=== PATIENT | female | born 1985 | race Caucasian/White ===

== ENCOUNTER 2016-07-28 03:23 | Emergency (ER) | payer OTHER ==
[~2016-07-28 03:23] MED LIST: ACTIGALL300 MG PO; METHADONE HCL10 M1 PO; PRENATAL TABLE1 EAC2 PO; ZOFRAN ODT4 M1 PO
--- NOTE | 2016-07-28 03:43 | ED CARDIAC/CP/PALPITATIONS ---
History of Present Illness General Chief Complaint: Chest Pain Stated Complaint: CHEST PAIN, ABD TIGHTNESS, 29 WEEKS PREG Source: patient, family, old records Exam Limitations: no limitations Vital Signs & Intake/Output Vital Signs & Intake/Output Vital Signs Date Time Temp Pulse Resp B/P Pulse O2 O2 Flow FiO2 Ox Delivery Rate 07/28 0901 97.6 96 18 129/74 98 Room Air ED Intake and Output 07/29 0000 07/28 1200 Intake Total 500 Output Total Balance 500 Intake, IV 500 Allergies Coded Allergies: guaifenesin (From MUCINEX) (PINS AND NEEDLES ALL OVER 04/02/16) Triage Note: TRIAGE: PATIENT TO ER FROM HOME REPORTING 29 WEEKS , DUE DATE OCTOBER 13, 2016. OBGYN: DR. MATTHEWS. DENIES CONTRACTIONS/ VAGINAL BLEEDING. REPORTING ABD PAIN AND TIGHTNESS, ALSO REPORTING CP. EKG ORDERED. Triage Nurses Notes Reviewed? yes HPI: Patient is 29 weeks with known gallstones. Since 7 PM she has been having sharp stabbing substernal chest pain and shortness of breath. The pain has a gradual onset. There are no aggravating or mitigating factors. There is no radiation of the pain. She rates the pain as 7 out of 10. Patient denies palpitations. Patient denies leg swelling. Patient is also complaining of contractions in her pelvis. Contractions are nonradiating. There are no aggravating or mitigating factors. She rates them as 6 out of 10. They last a few seconds before going away. Patient denies dysuria. Patient states that she 's had similar chest pain in the past and Ativan has helped when she has gotten it before. (BELLO ADAMS,CHINA Browning) Reconcile Medications Amoxicillin 875 MG TABLET 1 TAB PO BID INFECTION Methadone Hydrochloride (Methadone HCl) 10 MG TABLET 110 MG PO DAILY DIRECTED (Reported) Vit No.130/Iron/FA ( Tablet) 1 EACH TABLET 1 TAB PO DAILY (Reported) Ursodiol (Actigall) (Unknown Strength) CAPSULE (Unknown Dose) PO DAILY GALLSTONES (Reported) (DESIRE ADAMS,CHRISTIANO) Past History Travel History Traveled to [place] past 21 day No Medical History Any Pertinent Medical History? 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 No (BELLO ADAMS,CHINA Browning) Review of Systems Review of Systems Constitutional: Reports: no symptoms. EENTM: Reports: no symptoms. Respiratory: Reports: see HPI, short of breath. Cardiovascular: Reports: see HPI, chest pain. GI: Reports: see HPI, abdominal pain. Genitourinary: Reports: no symptoms. Musculoskeletal: Reports: no symptoms. Skin: Reports: no symptoms. Neurological/Psychological: Reports: no symptoms. Hematologic/Endocrine: Reports: no symptoms. Immunologic/Allergic: Reports: no symptoms. All Other Systems: Reviewed and Negative (BELLO ADAMS,CHINA Browning) Physical Exam Physical Exam General Appearance: well developed/nourished, alert, awake, anxious, moderate distress Head: atraumatic, normal appearance Eyes: Bilateral: PERRL, EOMI. Ears, Nose, Throat: normal pharynx, normal ENT inspection Neck: normal inspection, supple, full range of motion Respiratory: normal breath sounds, chest non-tender, no respiratory distress, lungs clear Cardiovascular: normal peripheral pulses, tachycardia, systolic murmur Gastrointestinal: normal bowel sounds, soft, non-tender, Back: normal inspection, normal range of motion Extremities: normal inspection, normal capillary refill, normal range of motion, no edema Neurologic/Psych: no motor/sensory deficits, awake, alert, oriented x 3, normal gait, normal mood/affect Skin: intact, normal color, warm/dry Lymphatic: no anterior cervical jonelle Core Measures ACS in differential dx? No Severe Sepsis Present: No Septic Shock Present: No (BELLO ADAMS,CHINA Browning) Progress Differential Diagnosis: AMI, cholecystitis, myocarditis, pericarditis, pulmonary embolism Plan of Care: Orders Procedure Date/time Status Telemetry/Wood Preparation Supervisor 07/28 341 Active URINALYSIS 07/28 034 Complete TROPONIN LEVEL 07/28 341 Complete D-DIMER 07/28 341 Complete COMPREHENSIVE METABOLIC PANEL 07/28 341 Complete CBC WITHOUT DIFFERENTIAL 07/28 341 Complete EKG 07/28 032 Active Laboratory Tests 07/28/16 0436: Urinalysis LIGHT H, Urine Color YEL, Urine Clarity HAZY H, Urine pH 7.0, Ur Specific [employer] 1.010, Urine Protein TRACE H, Urine Ketones NEG, Urine Nitrite NEG, Urine Bilirubin NEG, Urine Urobilinogen 0.2, Ur Leukocyte Esterase NEG, Ur Microscopic SEDIMENT EXAMINED, Urine RBC 1-3, Urine WBC 1-3 H, Ur Epithelial Cells MOD H, Urine Crystals 1+ HIPPURATE, Urine Mucus FEW, Urine Hemoglobin NEG , Urine Glucose NEG 07/28/16 0409: Anion Gap 7, Estimated GFR > 60, BUN/Creatinine Ratio 12.0, Glucose 96, Calcium 9.1, Total Bilirubin 0.3, AST 15, ALT 22, Alkaline Phosphatase 84, Troponin I < 0.01, Total Protein 7.0, Albumin 3.6, Globulin 3.4, Albumin/Globulin Ratio 1.1, D-Dimer 416 H, CBC w Diff NO MAN DIFF REQ, RBC 3.25 L, MCV 88.0, MCH 29.1, RDW 13.7, MPV 8.9, Gran % 75.6 H, Lymphocytes % 18.2 L, Monocytes % 4.5, Eosinophils % 1.1, Basophils % 0.6, Absolute Granulocytes 9.1 H, Absolute Lymphocytes 2.2, Absolute Monocytes 0.5, Absolute Eosinophils 0.1, Absolute Basophils 0.1, PUBS MCHC 33.1 7:37 am Patient signed out to me by Dr. Parish. Pending u/s leg. If ultrasound is negative patient will require chest x-ray and possible CT angiogram to rule out pulmonary embolism. 10:41 AM CXR CONSISTENT WITH RLL INFILTRATE. DR WANDY BUSH. Patient has been having a cough with yellow sputum production. She is a current daily smoker. I advised her to stop smoking immediately and follow up with Dr. Roldan office. (DESIRE ADAMS,CHRISTIANO) Initial ED EKG: SINUS TACH WITH NO SPECIFIC st-t CHANGES. Prior EKG: unchanged Rhythm Strip: sinus tachycardia Hand-Off Endorsed To: CHRISTIANO PHIPPS MD Endorsed Time: 0700 Pending: ultrasound (BELLO ADAMS,CHINA Browning) Diagnostic Imaging: Viewed by Me: Radiology Read, CT Scan, Ultrasound. Discussed w/RAD: Radiology Read, CT Scan, Ultrasound. CXR Impression: PATIENT: AUBREE EDWARDS PRESENT AGE: 30 PATIENT ACCOUNT NO: [id number] : 84 LOCATION: [facility] ORDERING PHYSICIAN: CHRISTIANO PHIPPS MD SERVICE DATE: 07/28/16 EXAM TYPE: RAD - XRY-CHEST XRAY , PA AND LATERAL EXAMINATION: XR CHEST CLINICAL INFORMATION: Tachycardia. Chest pain. Rule out infiltrate. COMPARISON: None TECHNIQUE: PA and lateral views of the chest were obtained. FINDINGS: There is a faint opacification in the right lung base medially, best seen on the frontal view. The left lung appears clear. No pleural effusions, pulmonary edema or pneumothorax. The cardiomediastinal silhouette is stable. The visualized osseous structures and the upper abdomen are unremarkable. IMPRESSION: Questionable faint opacification in the right lung base, concerning for underlying infiltrate. Another possibility may include artifact from overlying soft tissues. Recommend clinical correlation and follow up chest x-rays in 4-6 weeks. DICTATED BY: JENAE VENTURA MD DATE/TIME DICTATED:1008 CORE CLEANER:MELONIE DATE/TIME TRANSCRIBED:07/28/161008 CONFIDENTIAL, DO NOT COPY WITHOUT APPROPRIATE AUTHORIZATION. <Electronically signed in Other Vendor System> SIGNED BY: JENAE VENTURA MD 07/28/16 1023 (CHRISTIANO PHIPPS MD) Departure Departure Condition: Stable Referrals: UNKNOWN (PCP/Family) Departure Forms: Customer Survey General Discharge Information (BELLO ADAMS,CHINA Browning) Departure Time of Disposition: 1046 Disposition: HOME OR SELF CARE Clinical Impression Primary Impression: Pneumonia Secondary Impressions: Chest pain, unspecified Qualifiers: Chest pain type: other chest pain Qualified Code: R07.89 - Other chest pain Lower abdominal pain, unspecified Tobacco abuse Tobacco abuse counseling Additional Instructions: The the amoxicillin as directed. Follow-up with Dr. Roldan in the office tomorrow. Return immediately to the ER for any worsening cough, congestion, fever, chills, shortness of breath or chest pain. Prescriptions: Current Visit Scripts Amoxicillin 1 TAB PO BID #20 TAB (CHRISTIANO PHIPPS MD) Critical Care Note Critical Care Note Critical Care Time: mins: (40 MIN) (BELLO ADAMS,CHINA Browning)
[2016-07-28 04:18] LABS: ABSOLUTE BASOPHIL COUNT 0.1 /CUMM (0.0-0.2); ABSOLUTE EOSINOPHIL COUNT 0.1 /CUMM (0.0-0.7); ABSOLUTE GRANULOCYTE CT 9.1 /CUMM (1.4-6.5); ABSOLUTE LYMPH COUNT 2.2 /CUMM (1.2-3.4); ABSOLUTE MONOCYTE COUNT 0.5 /CUMM (0.10-0.60); BASOPHIL % 0.6 % (0.0-2.0); EOSINOPHIL % 1.1 % (0-5); GRANULOCYTE % 75.6 % (42.2-75.2); HEMATOCRIT 28.6 % (37-47); MEAN CORPUSCULAR HGB 29.1 PG (27.0-31.0); MEAN CORPUSCULAR HGB CONC 33.1 G/DL (33.0-37.0); MEAN PLATELET VOLUME 8.9 FL (7.4-10.4); PLATELET COUNT 325 /CUMM (130-400); RBC DISTRIBUTION WIDTH 13.7 % (11.5-14.5); RED BLOOD CELL CT 3.25 /CUMM (4.20-5.40)
--- NOTE | 2016-07-28 08:09 | ULTRASOUND REPORT ---
EXAMINATION: US TRIPLEX LOWER EXTREMITY, BILATERAL CLINICAL INFORMATION: Chest pain shortness of breath with 25 weeks gestation COMPARISON: None. TECHNIQUE: Color-flow triplex imaging with spectral analysis and compression Doppler were performed on the bilateral lower extremities. FINDINGS: Respiratory variation, normal compression and augmented flow are noted throughout the bilateral lower extremities. The visualized common femoral vein, superficial femoral vein, profunda femoral vein, popliteal vein and mid calf peroneal and posterior tibial venous segments show no evidence of deep venous thrombosis. There is no Douglas's cyst. IMPRESSION: Normal triplex scan without evidence of deep venous thrombosis involving the bilateral lower extremities.
[2016-07-28 09:01] VITALS: BP 129/74
--- NOTE | 2016-07-28 10:23 | RADIOLOGY REPORT ---
EXAMINATION: XR CHEST CLINICAL INFORMATION: Tachycardia. Chest pain. Rule out infiltrate. COMPARISON: None TECHNIQUE: PA and lateral views of the chest were obtained. FINDINGS: There is a faint opacification in the right lung base medially, best seen on the frontal view. The left lung appears clear. No pleural effusions, pulmonary edema or pneumothorax. The cardiomediastinal silhouette is stable. The visualized osseous structures and the upper abdomen are unremarkable. IMPRESSION: Questionable faint opacification in the right lung base, concerning for underlying infiltrate. Another possibility may include artifact from overlying soft tissues. Recommend clinical correlation and follow up chest x-rays in 4-6 weeks.
[2016-07-28] MEDS ORDERED: DOXYCYCLINE HY100 M4 PO (10:44)
[2016-07-28] MEDS ORDERED: AMOXICILLIN875 M1 PO (10:47)
== END 2016-07-28 11:02 ==
LOC: ERH 03:23
PROVIDERS: Emergency Medicine
DX: O99.513 Diseases of the respiratory system complicating pregnancy, third trimester (principal); J18.9 Pneumonia, unspecified organism; O99.335 Smoking (tobacco) complicating the puerperium; R07.9 Chest pain, unspecified; F17.210 Nicotine dependence, cigarettes, uncomplicated; R10.9 Unspecified abdominal pain
CPT/HCPCS: 81001; 93005; 93010; 93970; 96374; 96375; J0131

== ENCOUNTER 2016-09-22 13:29 | Emergency (ER) | payer OTHER ==
[~2016-09-22] VITALS: Ht 157.5 cm; Wt 78.0 kg
[~2016-09-22 13:29] MED LIST changes: +AMOXICILLIN875 M1 PO; +DOXYCYCLINE HY100 M4 PO
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
[2016-09-22 13:42] VITALS: BP 168/98
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
== END 2016-09-22 14:34 ==
LOC: ERH 13:29
DX: O13.3 Gestational [pregnancy-induced] hypertension without significant proteinuria, third trimester (principal); Z04.1 Encounter for examination and observation following transport accident; Z3A.37 37 weeks gestation of pregnancy; V89.2XXA Person injured in unspecified motor-vehicle accident, traffic, initial encounter; Y92.488 Other paved roadways as the place of occurrence of the external cause
CPT/HCPCS: 81001

== ENCOUNTER 2016-10-05 05:50 | Emergency (ER) | payer OTHER ==
[~2016-10-05] VITALS: Ht 157.5 cm; Wt 79.8 kg
--- NOTE | 2016-10-05 06:56 | ED DYSPNEA/ASTHMA COMPLAINT ---
History of Present Illness General Chief Complaint: Dyspnea (COPD, CHF, Other) Stated Complaint: SOB, ABD PRESSURE 39 WEEKS Source: patient, old records, Epic Exam Limitations: no limitations Vital Signs & Intake/Output Vital Signs & Intake/Output Vital Signs Date Time Temp Pulse Resp B/P Pulse O2 O2 Flow FiO2 Ox Delivery Rate 10/05 0645 99 Room Air 10/05 0602 98.8 103 14 163/99 99 Room Air Allergies Coded Allergies: guaifenesin (From MUCINEX) (PINS AND NEEDLES ALL OVER 04/02/16) Reconcile Medications Albuterol Sulfate (Proair Hfa) 90 MCG HFA.AER.AD 2-4 PUF INH Q4-6 PRN PRN shortness of breath Amoxicillin 875 MG TABLET 1 TAB PO BID INFECTION Methadone Hydrochloride (Methadone HCl) 10 MG TABLET 110 MG PO DAILY DIRECTED (Reported) Vit No.130/Iron/FA ( Tablet) 1 EACH TABLET 1 TAB PO DAILY (Reported) Ursodiol (Actigall) (Unknown Strength) CAPSULE (Unknown Dose) PO DAILY GALLSTONES (Reported) Triage Note: C/O DIFFICULTY BREATHING AND SHARP PAINS IN CHEST PT IS 39 WEEKS , WAS C/O ABD TIGHTNESS PT WAS EVALUATED BY CBC AND IS NOT IN ACTIVE LABOR HEAD CONGESTION Triage Nurses Notes Reviewed? yes Onset: 1 day Duration: day(s):, continues in ED, waxing and waning Timing: recent history Severity: moderate Activities at Onset: none Prior Episodes/Possible Cause: occasional episodes Modifying Factors: Improves With: movement, rest. Associated Symptoms: anxiety, cough, chest pain, pain LMP (ages 10-50): 39 weeks age gestation : Yes Patient currently breastfeeds: No HPI: Patient is 39 weeks age gestation presenting with complaint of abdominal tightening nasal congestion chest discomfort shortness of breath. The shortness of breath is improved with ambulation and rest. She also complains of heartburn and nausea. She denies fever chills vomiting diarrhea cough headache dysuria rash bleeding Past History Travel History Traveled to [place] past 21 day No Medical History Any Pertinent Medical History? see below for history Neurological: NONE EENT: NONE Cardiovascular: NONE Respiratory: NONE Gastrointestinal: NONE Hepatic: cholelithiasis Renal: NONE Musculoskeletal: NONE Psychiatric: NONE Endocrine: NONE Blood Disorders: NONE Cancer(s): NONE CARE COMPANION/Reproductive: ovarian cyst Surgical History Surgical History: non-contributory Psychosocial History What is your primary language Romansh Tobacco Use: Current Not Daily Family History Hx Contributory? No Review of Systems Review of Systems Constitutional: Reports: see HPI, malaise. EENTM: Reports: see HPI, nasal congestion. Respiratory: Reports: see HPI, short of breath. Cardiovascular: Reports: see HPI, chest pain. GI: Reports: see HPI, abdominal pain, nausea. Genitourinary: Reports: no symptoms. Musculoskeletal: Reports: no symptoms. Skin: Reports: no symptoms. Neurological/Psychological: Reports: no symptoms. Hematologic/Endocrine: Reports: no symptoms. Immunologic/Allergic: Reports: no symptoms. All Other Systems: Reviewed and Negative Physical Exam Physical Exam General Appearance: well developed/nourished, alert, awake, anxious, mild distress Head: atraumatic, normal appearance Eyes: Bilateral: normal appearance, PERRL, EOMI. Ears, Nose, Throat: normal pharynx, normal ENT inspection, hearing grossly normal Neck: normal inspection, supple, full range of motion, no midline tenderness Respiratory: chest non-tender, no respiratory distress, quiet respiration, lungs clear, decreased breath sounds Cardiovascular: regular rate/rhythm, normal peripheral pulses, norml femoral pulses equa Peripheral Pulses: 4+ carotid (R), 4+ carotid (L) Gastrointestinal: normal bowel sounds, non-tender, firm Breech presentation Extremities: normal inspection, normal capillary refill, normal range of motion, no edema Neurologic/Psych: no motor/sensory deficits, awake, alert, oriented x 3, normal gait, normal mood/affect, oil well logger II-XII nml as tested Skin: intact, normal color, warm/dry Lymphatic: no anterior cervical jonelle Core Measures ACS in differential dx? No Severe Sepsis Present: No Septic Shock Present: No Progress Differential Diagnosis: asthma, bronchitis, musculoskeletal pain Plan of Care: Current Medications Sig/Brittany Start time Last Medication Dose Stop Time Status Admin Oxymetazoline HCl 2 SPRAY ONCE ONE 10/05 729 UNVr (Afrin) 10/05 730 Initial ED EKG: none Departure Departure Time of Disposition: 722 Disposition: HOME OR SELF CARE Condition: Stable Clinical Impression Primary Impression: Bronchospasm with bronchitis, acute Secondary Impressions: at greater than 3 months gestation Referrals: PATIENT HAS NO PRIMARY CARE DR (PCP/Family) Additional Instructions: Afrin 2 sprays 2 times a day Departure Forms: Customer Survey General Discharge Information Prescriptions: Current Visit Scripts Albuterol Sulfate (Proair Hfa) 2-4 PUF INH Q4-6 PRN PRN shortness of breath #1 INHAL Critical Care Note Critical Care Note Critical Care Time: non-applicable
[2016-10-05] MEDS ORDERED: PROAIR HFA8.5 GM INH (07:20)
[2016-10-05 07:32] VITALS: BP 135/75
== END 2016-10-05 07:44 ==
LOC: ERH 05:50
DX: O99.513 Diseases of the respiratory system complicating pregnancy, third trimester (principal); J20.9 Acute bronchitis, unspecified; Z3A.39 39 weeks gestation of pregnancy; F17.200 Nicotine dependence, unspecified, uncomplicated
CPT/HCPCS: 1263; 80307; 81003; G0463; J3101

== ENCOUNTER 2016-10-07 05:55 | Inpatient (IN) | payer OTHER ==
[~2016-10-07] VITALS: Ht 157.5 cm; Wt 79.8 kg
[~2016-10-07 05:55] MED LIST changes: +PROAIR HFA8.5 GM INH
[2016-10-07 06:32] VITALS: BP 136/74
--- NOTE | 2016-10-07 14:27 | Operative Report ---
Operative/Inv Procedure Report Surgery Date: 10/07/16 Name of Procedure: Primary low section via Pfannenstiel Pre-Operative Diagnosis: 39 weeks intrauterine Breech presentation Cholestasis methadone dependence anemia Post-Operative Diagnosis: Same Estimated Blood Loss: 600ML Surgeon/Lockstitcher: JEREMIAH ADAMS,KENDALL Merritt MD Anesthesia: SPINAL IV Fluids: Lactated Ringer's Urine Output: 100 mL clear urine at the end of procedure Specimens: Placenta Complications: None Condition: Stable Operative Indication: 33-year-old, 39 weeks intrauterine , breech presentation. Operative/Procedure Note Note: The patient was taken to the operating room where spinal anesthesia was found to be adequate. She was then prepared and draped in the usual sterile fashion in the dorsosupine position with a leftward tilt. A Pfannenstiel skin incision was then made with the scalpel and carried through to the underlying layer of the fascia with the Bovie. The fascia was incised in the midline and the incision extended laterally with the Beal scissors. The inferior aspect of this fascial incision was then grasped with the Dread clamps, elevated, and underlying rectus muscle dissected off bluntly. Attention was then turned to the superior aspect of the incision which, in a similar fashion, was grasped, tented up with the Dread clamps, and the rectus muscle dissected off bluntly. And the peritoneum identified tented up and entered bluntly. The peritoneal incision was then extended superiorly and inferiorly with good visualization of the bladder. The bladder blade was then inserted and the vesicouterine peritoneum identified grasped with the pickups and entered sharply with the Metzenbaum scissors. The incision was then extended laterally and bladder flap created digitally. The bladder blade was then reinserted and the lower uterine segment incised in a transverse fashion with the scalpel. The uterine incision was then extended laterally , the bladder blade was removed and infant was delivered atraumatically use a breech delivery maneuver. The mouth and nose was suctioned with suction bulb, and the cord clamped and cut. The was handed off to the waiting pediatricians. Cord blood were sent. The placenta was then removed manually, the uterus exteriorized, and cleared of all clots and debris. The uterine incision was repaired with 0 Vicryl in a running locked fashion. A second layer of the same suture was used to obtain excellent hemostasis. On the right side corner there is small amount of bleeding noted ,which 0 Vicryl suture was used to achieve hemostasis. The uterus returned to the abdomen. The gutters were cleared of all clots. The peritoneum closed with 3-0 Vicryl. The rectus muscle was reapproximated with 2-0 vicryl. The fascia was reapproximated with 0 Vicryl in a running fashion. The skin was closed with 4-0 Polysorb subcuticularly. Patient tolerated the procedure well. Sponge, lap and needle counts were correct 2. Patient was taken to the recovery room in stable condition. 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 normal uterus , tubes and ovaries.
[2016-10-08 10:24] LABS: ABSOLUTE BASOPHIL COUNT 0 /CUMM (0.0-0.2); ABSOLUTE EOSINOPHIL COUNT 0.1 /CUMM (0.0-0.7); ABSOLUTE GRANULOCYTE CT 8.5 /CUMM (1.4-6.5); ABSOLUTE LYMPH COUNT 1.7 /CUMM (1.2-3.4); ABSOLUTE MONOCYTE COUNT 0.4 /CUMM (0.10-0.60); BASOPHIL % 0.3 % (0.0-2.0); EOSINOPHIL % 0.8 % (0-5); GRANULOCYTE % 79.7 % (42.2-75.2); HEMATOCRIT 25.5 % (37-47); MEAN CORPUSCULAR HGB 26.4 PG (27.0-31.0); MEAN CORPUSCULAR HGB CONC 31.8 G/DL (33.0-37.0); MEAN CORPUSCULAR VOLUME 82.8 FL (81.0-99.0); MEAN PLATELET VOLUME 10.1 FL (7.4-10.4); PLATELET COUNT 273 /CUMM (130-400); RBC DISTRIBUTION WIDTH 15.4 % (11.5-14.5); RED BLOOD CELL CT 3.08 /CUMM (4.20-5.40); WHITE BLOOD CELL COUNT 10.7 /CUMM (4.8-10.8)
--- NOTE | 2016-10-08 14:30 | PN- Post Delivery/GYN ---
Subjective Subjective: Doing fine Review of Systems: Neg for cardiac pulmonary GI complaints Objective Last 24 Hrs of Vital Signs/I&O 99.1 P 88 -92 R 17 BP 130/80 PO 2 99% RA Physical Exam General Appearance Alert, Oriented X3, Cooperative, No Acute Distress Skin No Significant Lesion Cardiovascular Regular Rate Lungs Normal Air Movement Abdomen Normal Bowel Sounds, Soft, No Tenderness, No Hepatospenomegaly, terus firm midline nontender 2 FB Below umbilicus Incision clean dry intact Neurological Normal Gait, Normal Speech Extremities No Tenderness/Swelling Reproductive (FEMALE) Normal female genitalia, avge lochia Current Medications: Current Medications Sig/Brittany Start time Last Medication Dose Route Stop Time Status Admin Acetaminophen 1,000 MG .STK-MED ONE 10/08 0145 DC IV 10/08 0146 Acetaminophen 1,000 MG Q6P PRN 10/07 1545 10/08 N/A 1 UNIT IV 0152 Bisacodyl 10 MG DAILY NEEDED PRN 10/07 1345 AC IN Diphenhydramine HCl 25 MG Q6P PRN 10/07 1545 AC IV Docusate Sodium 100 MG AT BEDTIME PRN 10/07 1345 AC PO Hydroxyzine HCl 100 MG AT BEDTIME NEED.. 10/07 2345 AC 10/07 PO 2341 Ibuprofen 800 MG Q6P PRN 10/07 1345 AC 10/08 PO 1243 Ketorolac 30 MG Q6P PRN 10/07 1800 AC 10/08 Tromethamine IV 10/08 1759 0151 Lactated Ringer's 1,000 ML Q8H 10/07 1345 AC 10/08 IV 0041 Methadone HCl 120 MG 8AM 10/08 0800 AC 10/08 PO 0825 Metoclopramide HCl 10 MG Q6P PRN 10/07 1545 AC IV Oxycodone/ 1 TAB Q4P PRN 10/07 1345 AC Acetaminophen PO Oxycodone/ 2 TAB Q4P PRN 10/07 1345 AC 10/08 Acetaminophen PO 1029 Oxytocin 20 UNITS Q8H 10/07 1345 DC 10/07 Lactated Ringer's 1,000 ML IV 10/07 2144 1754 Sodium Chloride 2 SPRAY Q4P PRN 10/07 1545 AC 10/07 RADHA 1754 Last 24 Hrs of Labs/Amado: admission Hgb 9.5 Laboratory Tests 10/08/16 0845: CBC w Diff NO MAN DIFF REQ, RBC 3.08 L, MCV 82.8, MCH 26.4 L, RDW 15.4 H, MPV 10.1, Gran % 79.7 H, Lymphocytes % 15.5 L, Monocytes % 3.7, Eosinophils % 0.8, Basophils % 0.3, Absolute Granulocytes 8.5 H, Absolute Lymphocytes 1.7, Absolute Monocytes 0.4, Absolute Eosinophils 0.1, Absolute Basophils 0, PUBS MCHC 31.8 L Assessment/Plan Assessment/Plan Stable POD #1\ PPD#1 Encourage ambulation Reg diet PO pain meds Problem List: 1. 2. Tobacco abuse 3. Methadone dependence 4. Anemia affecting 5. delivery delivered 6. Breech delivery Attending MD Review Statement Attending Statement Attending MD Statement: examined this patient, discussed with family, reviewed EMR data (avail), discussed with nursing Attending Assessment/Plan: Eze Evans MD
[2016-10-08] MEDS ORDERED: FERROUS SULFAT325 M3 PO (14:31)
--- NOTE | 2016-10-09 14:36 | PN- OBGYN ---
Surgical Brief Attending Note Brief Attending Note: No complaints. Doing well. Ambulating, voiding, tolerating pain and po. +flatus. bottlefeeding. VSSAF FF@U inc c/d/i ext No calf tendernes, 1+ pedal edema Vital Signs Date Time Temp Pulse Resp B/P Pulse O2 O2 Flow FiO2 Ox Delivery Rate 10/07 0632 136/74 Microbiology Date/Time Procedure - Status Source Growth 10/07 1343 Urine Culture - CAN URINE ROUT Cancelled: DUPLICATE Orders Procedure Date/time Status CBC WITHOUT DIFFERENTIAL 10/08 0600 Complete Regular Diet 10/07 D Active Nothing by Mouth 10/07 B Complete URINE DRUGS OF ABUSE 10/07 1404 Complete PATHOLOGY SPECIMEN 10/07 1349 Complete Pathway - chart 10/07 1343 Active Misc Message 10/07 1343 Active Wound Care/Dressing 10/07 1343 Active Vital Signs 10/07 1343 Active Cedillo, Insertion/Removal/Asses 10/07 1343 Active CBC: Device(s) 10/07 1343 Active Activity/Ambulation 10/07 1343 Active TRANSFER ORDERS 10/07 1339 Complete Pathway - chart 10/07 0605 Active Patient Data 10/07 0605 Active Vital Signs 10/07 0605 Complete OB: Monitoring 10/07 0605 Complete CBC: Device(s) 10/07 0605 Complete Activity/Ambulation 10/07 0605 Complete CULTURE,URINE 10/07 0605 Complete URINE DRUGS OF ABUSE 10/07 0605 Complete Childbirth Center Pt Data 10/07 UNK Active Admit to inpatient 10/07 UNK Active VTE Mechanical Prophylaxis 10/07 UNK Active Procedure Prep 10/07 UNK Complete Cedillo, Insertion/Removal/Asses 10/07 UNK Complete a/p pod 2. s/p primary LTCS. doing well. routine pp care. anemia. will replace iron upon discharge. h/o methadone use.. Loyal stays x 96 hours. anticipate discharge pod3-4
--- NOTE | 2016-10-10 09:43 | PN- OBGYN ---
Surgical Brief Attending Note Brief Attending Note: POD#3 pt is ambulating, no compliants, tolerate diet, void without difficulties. + flatus PE: VSS Abdomen: soft, nontender, uterus firm, fundus below umbilicus. incision D/C/I Ext: DCT (-) A/P: 30yo, s/p PLTCS for breech, POD #3 1. encourage ambulation 2. pain management as needed 3. will be observed for 96 hrs due to mother's methadone use, plan to d/c pt tomorrow.
--- NOTE | 2016-10-11 10:37 | PN- OBGYN ---
Surgical Brief Attending Note Brief Attending Note: POD#4 pt is sitting in chair in tears, upset about the incidence this am, pt was found falling asleep while holding the babyand sitting at edge of the bed, the head was hanging toward the group, the nurse was able toscoped the baby and put the baby in to the crib. pt has no complaints now, still have some incisional pain. desires to have bowel movement but was afraid of the pain. PE: VSS general: awake, alert abdomen: soft, nontender, uterus firm, fundus below umbilicus. incision D/C/I, lochia mild Ext: DCT (-), edema (+) A/P: 30 yo, s/p PLTCS, methadone dependence, POD#4 1. will encourage ambulation and pain management as needed 2. stress the importance of infant safety, and reviewed with pt and partner about safety measures. both of them understand. RN called methadone clinic , spoke with Vicky Etienne RN, who called the Dr. Bolivar( application design engineer physician) , methadone dose change to 110 mg by telephone order. ( RN line) . also clinic needs a phone call before discharge, so pt can follow up as outpt. 3. will change the percocet dose to reduce the narcotic effect. pt aware and agreed. 4. anemia-- pt is constipated, will give ducolax supp. may start iron supplement after constipation resolved. 5. will monitor closely
--- NOTE | 2016-10-12 09:31 | PN- OBGYN ---
Surgical Brief Attending Note Brief Attending Note: POD#5 pt is ambulating, c/o she had small bowel movement last night. tolerate diet, void without difficulties. + flatus PE: General: NAD Cv RRR Lungs : CTA B/L Abdomen: soft, nontender, uterus firm, fundus below umbilicus. incision D/C/I. lochia mild DCT (-) A/P: 30yo, s/p PLTCS, on methadone. POD#5 1. encourage ambulation, 2.pain management as needed. 3. will d/c home, f/u in office in 1wk . will inform methadone clinic .
[2016-10-12] MEDS ORDERED: IBUPROFEN800 M1 PO (09:34)
[2016-10-12] MEDS ORDERED: PERCOCET 5-3251 EACH PO (09:34)
--- NOTE | 2016-10-12 09:49 | Discharge Summary ---
Visit Information Visit Dates Admission Date: 10/07/16 Discharge Date: 10/12/2016 Hospital Course Course Attending Physician: KENDALL DANIELS MD Primary Care Physician: PATIENT HAS NO PRIMARY CARE DR Hospital Course: 30-year-old patient, admitted for primary section for breech presentation ON 10/07/2016. She underwent primary low transverse section, delivered a live female atraumatically, patient tolerated the procedure well, no complications. During the hospital stay, patient remained in stable condition, afebrile, tolerated diet, void without difficulties, flatus positive, bowel movement positive, ambulating well. On exam, abdomen soft, nontender, uterus firm, incision dry clean and intact. She was found to have hemoglobin 8.5( preop 9.1), will start some iron supplementation. Methadone dose was decreased to 110 mg as per order of methadone clinic. She was discharged on postop day 5 with instructions to follow-up in office in 1 week Complications: none Allergies: Coded Allergies: guaifenesin (From MUCINEX) (Mild, PINS AND NEEDLES ALL OVER 10/07/16) Significant Procedures: Low transverse section via Pfannenstiel Disposition Summary Disposition Principal Diagnosis: 39 weeks IUP, breech presentation, cholestasis Additional Diagnosis: Anemia Methadone dependence Discharge Disposition: home or self care Discharge Instructions General Discharge Information Code Status: Full Code Patient's Diet: Regular Patient's Activity: As tolerated Follow-Up Instructions/Appts: Follow-up in office in 1 week and 6 weeks. Pelvic rest for 6 weeks Follow-up with methadone clinic the next day Medications at Discharge Discharge Medications: Stop taking the following medications: Ursodiol (Actigall) (Unknown Strength) CAPSULE ORAL DAILY Amoxicillin (Amoxicillin) 875 MG TABLET ORAL TWICE DAILY Qty = 20 Continue taking these medications: Vit No.130/Iron/FA ( Tablet) 1 EACH TABLET 1 Tablet ORAL DAILY Methadone Hydrochloride (Methadone HCl) 10 MG TABLET 110 Milligram ORAL DAILY Comments: [facility] PER PT Albuterol Sulfate (Proair Hfa) 90 MCG HFA.AER.AD 2-4 Puff Inhale through mouth EVERY 4-6 HOURS NEEDED as needed for shortness of breath Qty = 1 Start taking the following new medications: Ibuprofen (Ibuprofen) 800 MG TABLET 800 Milligram ORAL EVERY SIX HOURS NEEDED as needed for UTERINE CRAMPING Qty = 30 No Refills Comments: Last Taken: 10/12/16 Time: 0500 Oxycodone HCl/Acetaminophen (Percocet 5-325 MG Tablet) 5 MG-325 MG TABLET 1 Tablet ORAL EVERY 6 HOURS NEEDED as needed for PAIN SCALE 4-6 (MODERATE ) Qty = 20 No Refills Comments: Last Taken: 10/12/16 Time: 0500 Ferrous Sulfate (Ferrous Sulfate) 325 MG (65 MG IRON) TABLET 1 Tablet ORAL DAILY Qty = 60 Refills = 2 Copies To: KENDALL DANIELS MD Attending MD Review Statement Documenting Attending: KENDALL DANIELS MD
== END 2016-10-12 10:55 | DRG 540 ==
LOC: GNO 05:55
PROVIDERS: ADMIT Obstetrics & Gynecology
PROC: 10D00Z1 Extraction of Products of Conception, Low, Open Approach (ICD-10-PCS; principal; 2016-10-07)
DX: O32.1XX0 Maternal care for breech presentation, not applicable or unspecified (principal); O26.62 Liver and biliary tract disorders in childbirth; O99.324 Drug use complicating childbirth; F11.20 Opioid dependence, uncomplicated; O99.02 Anemia complicating childbirth; Z3A.39 39 weeks gestation of pregnancy; Z37.0 Single live birth
CPT/HCPCS: 80307; 81001; 87086; 88307; J0131; J0690; J1885; J7120

== ENCOUNTER 2016-12-08 04:01 | Emergency (ER) | payer OTHER ==
[~2016-12-08] VITALS: Ht 157.5 cm; Wt 68.0 kg
[~2016-12-08 04:01] MED LIST changes: +FERROUS SULFAT325 M3 PO; +IBUPROFEN800 M1 PO; +PERCOCET 5-3251 EACH PO
--- NOTE | 2016-12-08 04:43 | ED THROAT/DENTAL COMPLAINT ---
History of Present Illness General Chief Complaint: General Adult Stated Complaint: RIGHT SIDE JAW PAIN, ABD PAIN, DIFF BREATHING] Source: patient Exam Limitations: no limitations Vital Signs & Intake/Output Vital Signs & Intake/Output Vital Signs Date Time Temp Pulse Resp B/P B/P Pulse O2 O2 Flow FiO2 Mean Ox Delivery Rate 12/08 0419 98.8 135 18 133/89 99 Allergies Coded Allergies: guaifenesin (From MUCINEX) (Mild, PINS AND NEEDLES ALL OVER 10/07/16) Reconcile Medications Albuterol Sulfate (Proair Hfa) 90 MCG HFA.AER.AD 2-4 PUF INH Q4-6 PRN PRN shortness of breath Ferrous Sulfate 325 MG (65 MG IRON) TABLET 1 TAB PO DAILY anemia Ibuprofen 800 MG TABLET 800 MG PO Q6P PRN UTERINE CRAMPING Methadone Hydrochloride (Methadone HCl) 10 MG TABLET 110 MG PO DAILY DIRECTED (Reported) Oxycodone HCl/Acetaminophen (Percocet 5-325 MG Tablet) 5 MG-325 MG TABLET 1 TAB PO Q6-PRN PRN PAIN SCALE 4-6 (MODERATE) Vit No.130/Iron/FA ( Tablet) 1 EACH TABLET 1 TAB PO DAILY (Reported) Triage Note: PT C/O CP, SOB, HEART PALPITAIONS, RIGHT SIDE TOOTHACHE FOR PAST FEW MONTHS GETTING INCREASINGLY WORSE PAST TWO DAYS PT DENIES N/V/D, FEVER AND CHILLS Triage Nurses Notes Reviewed? 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 EENTM: Reports: no symptoms. Respiratory: Reports: no symptoms. Cardiovascular: Reports: no symptoms. GI: Reports: no symptoms. Genitourinary: Reports: no symptoms. Musculoskeletal: Reports: no symptoms. Skin: Reports: no symptoms. Neurological/Psychological: Reports: no symptoms. Hematologic/Endocrine: Reports: no symptoms. Immunologic/Allergic: Reports: no symptoms. All Other Systems: Reviewed and Negative Progress Plan of Care: Orders Procedure Date/time Status XRY-PORTABLE CHEST XRAY 12/08 514 Active TROPONIN LEVEL 12/08 514 Active HUMAN BETA HCG SCREEN 12/08 514 Active D-DIMER 12/08 514 Active COMPREHENSIVE METABOLIC PANEL 12/08 514 Active CBC WITHOUT DIFFERENTIAL 12/08 514 Active EKG 12/08 0432 Active Departure Departure Condition: Stable Referrals: PATIENT HAS NO PRIMARY CARE DR (PCP/Family) Departure Forms: Customer Survey General Discharge Information Referrals: PATIENT HAS NO PRIMARY CARE DR (PCP/Family) Departure Forms: Customer Survey General Discharge Information
--- NOTE | 2016-12-08 05:21 | ED GENERAL ADULT ---
History of Present Illness General Chief Complaint: General Adult Stated Complaint: RIGHT SIDE JAW PAIN, ABD PAIN, DIFF BREATHING] Source: patient Exam Limitations: no limitations Vital Signs & Intake/Output Vital Signs & Intake/Output Vital Signs Date Time Temp Pulse Resp B/P B/P Pulse O2 O2 Flow FiO2 Mean Ox Delivery Rate 12/08 0620 97.5 113 20 120/69 96 12/08 0419 98.8 135 18 133/89 99 Allergies Coded Allergies: guaifenesin (From MUCINEX) (Mild, PINS AND NEEDLES ALL OVER 10/07/16) Reconcile Medications Albuterol Sulfate (Proair Hfa) 90 MCG HFA.AER.AD 2-4 PUF INH Q4-6 PRN PRN shortness of breath Ferrous Sulfate 325 MG (65 MG IRON) TABLET 1 TAB PO DAILY anemia Ibuprofen 800 MG TABLET 800 MG PO Q6P PRN UTERINE CRAMPING Methadone Hydrochloride (Methadone HCl) 10 MG TABLET 110 MG PO DAILY DIRECTED (Reported) Oxycodone HCl/Acetaminophen (Percocet 5-325 MG Tablet) 5 MG-325 MG TABLET 1 TAB PO Q6-PRN PRN PAIN SCALE 4-6 (MODERATE) Vit No.130/Iron/FA ( Tablet) 1 EACH TABLET 1 TAB PO DAILY (Reported) Triage Note: PT C/O CP, SOB, HEART PALPITAIONS, RIGHT SIDE TOOTHACHE FOR PAST FEW MONTHS GETTING INCREASINGLY WORSE PAST TWO DAYS PT DENIES N/V/D, FEVER AND CHILLS Triage Nurses Notes Reviewed? yes Onset: Gradual Duration: day(s): Timing: recent history Injury Environment: home Severity: moderate Modifying Factors: Worsens With: other (w/palpation). Associated Symptoms: chest pain : No Patient currently breastfeeds: No HPI: 30 yo woman presents with constellation of symptoms, including right lower dental pain. She notes that she recently had 2 teeth removed, "and now I feel a lot of pain and swelling in there." She notes also that she feels left sided chest pain, "it really hurts.. I can't even catch my breath." Past History Travel History Traveled to [place] past 21 day No Medical History Any Pertinent Medical History? see below for history Neurological: NONE EENT: NONE Cardiovascular: NONE Respiratory: NONE Gastrointestinal: NONE Hepatic: cholelithiasis Renal: NONE Musculoskeletal: NONE Psychiatric: NONE Endocrine: NONE Blood Disorders: NONE Cancer(s): NONE [employer] SCHOOL PRINCIPAL/Reproductive: ovarian cyst Surgical History Surgical History: non-contributory Psychosocial History What is your primary language [place]an Tobacco Use: Current Daily Use Daily Tobacco Use Amount/Type: =< 4 Cigarettes daily Family History Hx Contributory? No Review of Systems Review of Systems Constitutional: Reports: no symptoms. EENTM: Reports: no symptoms. Respiratory: Reports: no symptoms. Cardiovascular: Reports: no symptoms. GI: Reports: no symptoms. Genitourinary: Reports: no symptoms. Musculoskeletal: Reports: no symptoms. Skin: Reports: no symptoms. Neurological/Psychological: Reports: no symptoms. Hematologic/Endocrine: Reports: no symptoms. Immunologic/Allergic: Reports: no symptoms. All Other Systems: Reviewed and Negative Physical Exam Physical Exam General Appearance: well developed/nourished, moderate distress Head: atraumatic, normal appearance Eyes: Bilateral: normal appearance. Ears, Nose, Throat: normal pharynx, normal ENT inspection, right lower gum tenderness, erythema. poor dentition. Neck: normal inspection, supple, full range of motion Respiratory: normal breath sounds, no respiratory distress, quiet respiration, lungs clear, parasternal chest wall tenderness to palpation Cardiovascular: tachycardia Gastrointestinal: normal bowel sounds Back: normal inspection Extremities: normal inspection, normal capillary refill, normal range of motion, no edema Neurologic/Psych: no motor/sensory deficits, awake, alert, oriented x 3 Skin: intact, normal color, warm/dry Core Measures ACS in differential dx? No CVA/TIA Diagnosis: No Severe Sepsis Present: No Septic Shock Present: No Progress Differential Diagnoses I considered the following diagnoses in my evaluation of the patient: dental abscess vs toothache. costochondritis vs pe vs other. Plan of Care: Orders Procedure Date/time Status TROPONIN LEVEL 12/08 514 Complete HUMAN BETA HCG SCREEN 12/08 514 Complete D-DIMER 12/08 514 Complete COMPREHENSIVE METABOLIC PANEL 12/08 514 Complete CBC WITHOUT DIFFERENTIAL 12/08 514 Complete EKG 12/08 043 Active Laboratory Tests 12/08/16 0527: Anion Gap 12, Estimated GFR > 60, BUN/Creatinine Ratio 10.0, Glucose 114 H, Calcium 9.2, Total Bilirubin 0.4, AST 21, ALT 45, Alkaline Phosphatase 54, Troponin I < 0.01, Total Protein 7.6, Albumin 4.5, Globulin 3.1, Albumin/ Globulin Ratio 1.5, Total Beta HCG NEGATIVE, D-Dimer 258 H, CBC w Diff NO MAN DIFF REQ, RBC 4.45, MCV 77.0 L, MCH 24.5 L, RDW 17.8 H, MPV 8.3, Gran % 81.3 H, Lymphocytes % 13.3 L, Monocytes % 4.0, Eosinophils % 0.6, Basophils % 0.8, Absolute Granulocytes 7.2 H, Absolute Lymphocytes 1.2, Absolute Monocytes 0.3, Absolute Eosinophils 0.1, Absolute Basophils 0.1, PUBS MCHC 31.9 L Diagnostic Imaging: Viewed by Me: Radiology Read. Discussed w/RAD: Radiology Read. Radiology Impression: rll infiltrate...similar to prior. Initial ED EKG: sinus tach, no acute changes Comments: PATIENT: AUBREE EDWARDS PRESENT AGE: 30 PATIENT ACCOUNT NO: [id number] : 84 LOCATION: [facility] ORDERING PHYSICIAN: TRAN MARTIN MD SERVICE DATE: 12/08/16 EXAM TYPE: RAD - XRY-PORTABLE CHEST XRAY EXAMINATION: XR PORTABLE CHEST CLINICAL INFORMATION: Chest pain COMPARISON: 07/28/2016 TECHNIQUE: Portable frontal view of the chest was obtained. FINDINGS: The lungs are well expanded. Hazy right basilar airspace opacity. The left lung is clear. No pleural effusion or pneumothorax. The cardiomediastinal silhouette is within normal limits. IMPRESSION: Right basilar airspace opacity suspicious for pneumonia. This is in a similar area to the prior chest radiograph. Follow-up to resolution. DICTATED BY: KAYLA PRASAD MD DATE/TIME DICTATED:12/08/16550 SOAKER:MELONIE DATE/TIME TRANSCRIBED:12/08/16550 CONFIDENTIAL, DO NOT COPY WITHOUT APPROPRIATE AUTHORIZATION. <Electronically signed in Other Vendor System> SIGNED BY: KAYLA PRASAD MD 12/0855 Departure Departure Disposition: HOME OR SELF CARE Condition: Stable Clinical Impression Primary Impression: Dental infection Secondary Impressions: Costochondritis, acute, Pneumonia Referrals: PATIENT HAS NO PRIMARY CARE DR (PCP/Family) Departure Forms: Customer Survey General Discharge Information Comments 12/08/16, 6:49am... pt feeling better with supportive medications.... D-dimer is 258, slightly above cut-off of 250... I advised a ct scan to assess for PE. Pt wishes to go home, stating that she would not like a ct scan and that she will return later if symptoms recur. We also discussed the infiltrate on the cxr, which was seen previously... the antibiotics for the dental infection should treat this... close follow up advised. Critical Care Note Critical Care Note Critical Care Time: non-applicable
[2016-12-08 05:38] LABS: ABSOLUTE BASOPHIL COUNT 0.1 /CUMM (0.0-0.2); ABSOLUTE EOSINOPHIL COUNT 0.1 /CUMM (0.0-0.7); ABSOLUTE GRANULOCYTE CT 7.2 /CUMM (1.4-6.5); ABSOLUTE LYMPH COUNT 1.2 /CUMM (1.2-3.4); ABSOLUTE MONOCYTE COUNT 0.3 /CUMM (0.10-0.60); BASOPHIL % 0.8 % (0.0-2.0); EOSINOPHIL % 0.6 % (0-5); GRANULOCYTE % 81.3 % (42.2-75.2); HEMATOCRIT 34.3 % (37-47); MEAN CORPUSCULAR HGB 24.5 PG (27.0-31.0); MEAN CORPUSCULAR HGB CONC 31.9 G/DL (33.0-37.0); MEAN PLATELET VOLUME 8.3 FL (7.4-10.4); PLATELET COUNT 326 /CUMM (130-400); RBC DISTRIBUTION WIDTH 17.8 % (11.5-14.5); RED BLOOD CELL CT 4.45 /CUMM (4.20-5.40); WHITE BLOOD CELL COUNT 8.8 /CUMM (4.8-10.8)
--- NOTE | 2016-12-08 05:55 | RADIOLOGY REPORT ---
EXAMINATION: XR PORTABLE CHEST CLINICAL INFORMATION: Chest pain COMPARISON: 07/28/2016 TECHNIQUE: Portable frontal view of the chest was obtained. FINDINGS: The lungs are well expanded. Hazy right basilar airspace opacity. The left lung is clear. No pleural effusion or pneumothorax. The cardiomediastinal silhouette is within normal limits. IMPRESSION: Right basilar airspace opacity suspicious for pneumonia. This is in a similar area to the prior chest radiograph. Follow-up to resolution.
[2016-12-08 06:20] VITALS: BP 120/69
== END 2016-12-08 06:53 ==
LOC: ERH 04:01
PROVIDERS: Pediatrics
DX: K04.7 Periapical abscess without sinus (principal); M94.0 Chondrocostal junction syndrome [Tietze]; J18.9 Pneumonia, unspecified organism; Z72.0 Tobacco use; R10.9 Unspecified abdominal pain
CPT/HCPCS: 93005; 93010; 96372; J1885; J3490